=== PATIENT | female | born 1960 | race Caucasian/White ===

== ENCOUNTER 2020-11-27 13:45 | Emergency (ER) | payer MEDICAID, OTHER ==
[~2020-11-27] VITALS: Ht 165.1 cm; Wt 77.1 kg
--- NOTE | 2020-11-27 13:54 | NUR ---
[email or web address], medical screening exam in progress
[2020-11-27] MEDS ORDERED: ACETAMINOPHEN 325 MG TABLET PO ONE (14:00)
[2020-11-27] MEDS ORDERED: LIDOCAINE 5% PATCH TD ONE ×2 (14:00→14:09)
[2020-11-27] MEDS ORDERED: ACETAMINOPHEN 325 MG TABLET ONE (14:09)
[2020-11-27] MEDS ORDERED: BACLOFEN 10 MG TABLET ONE (14:12)
[2020-11-27] MEDS ORDERED: MORPHINE SULFATE 4 MG/1 ML DISP.SYRIN ONE (14:13)
--- NOTE | 2020-11-27 14:13 | NUR ---
Patient refused all pain medicines except lidocaine patch, notified.
[2020-11-27] MEDS ORDERED: MORPHINE SULFATE 4 MG/1 ML DISP.SYRIN IM ONE (14:15)
[2020-11-27] MEDS ORDERED: BACLOFEN 10 MG TABLET PO ONE (14:15)
[2020-11-27] MEDS ORDERED: ACET-2154 PO (14:34)
[2020-11-27] MEDS ORDERED: IBUP-1955 PO (14:34)
[2020-11-27] MEDS ORDERED: BACL10TA PO (14:34)
[2020-11-27] MEDS ORDERED: LIDO30AD10 TD (14:34)
--- NOTE | 2020-11-27 14:38 | NUR ---
Patient discharged to home in stable condition with brisk steady gait. Written and verbal after care instructions given to patient and family in [place] and [place]. Patient and family verbalized understanding and compliance of instructions. Stressed follow up with primary doctor and orthopedic doctor or return to ER for worsening s/s.
== END 2020-11-27 14:40 | disposition home or self-care (01) ==
LOC: ER 13:45
DX: M75.31 Calcific tendinitis of right shoulder (principal); I10 Essential (primary) hypertension
CPT/HCPCS: 73030; J2270

== ENCOUNTER 2022-03-04 00:18 | Emergency (ER) | payer OTHER ==
[~2022-03-04] VITALS: Ht 165.1 cm; Wt 82.6 kg
[~2022-03-04 00:18] MED LIST: ACET-2154 PO; BACL10TA PO; IBUP-1955 PO; LIDO30AD10 TD
--- NOTE | 2022-03-04 01:00 | NUR ---
Patient A/O x4. NAD noted. Ambulatory with a steady gait.
[2022-03-04] MEDS ORDERED: IBUPROFEN 800 MG TABLET ONE ×2 (01:02→02:22)
[2022-03-04] MEDS: IBUPROFEN 800 MG TABLET PO ONE ×2 (01:04→02:24)
[2022-03-04 01:28] LABS: HEMATOCRIT 33.5 % (31.2-41.9); MEAN CORPUSCULAR HEMOGLOBIN 30.5 uug (24.7-32.8); MEAN CORPUSCULAR VOLUME 91.8 fL (75.5-95.3); PLATELET COUNT (AUTO) 334 K/uL (179-408)
[2022-03-04 01:35] LABS: BILIRUBIN,DIRECT 0.1 mg/dL (0.0-0.2); BILIRUBIN,TOTAL 0.4 mg/dL (0.2-1.0); CREATININE 0.7 mg/dL (0.6-1.3); TOTAL PROTEIN, SERUM 7.6 g/dL (6.4-8.2)
[2022-03-04 01:39] LABS: *BILIRUBIN,URIN NEGATIVE (NEGATIVE); *BLOOD, URINE NEGATIVE (NEGATIVE); *CLARITY,URINE CLEAR (CLEAR); *COLOR,URINE LIGHT YELLOW (YELLOW); *KETONES,URINE NEGATIVE (NEGATIVE); *UROBILINOGEN,URINE 0.2 E.U./dl (NORMAL); LEUKOCYTE ESTERASE ,URINE NEGATIVE (NEGATIVE); NITRITE, URINE NEGATIVE (NEGATIVE); PH,URINE 6.5 (5.0-8.0); UGLUCOSE NEGATIVE (NEGATIVE)
--- NOTE | 2022-03-04 03:40 | NUR ---
Patient taken down for CT.
[2022-03-04] MEDS ORDERED: SWABABLE VALVE TRANSFER SET EA MC ONE (03:41)
[2022-03-04] MEDS ORDERED: IOHEXOL 300MG/ML 100 ML INFUS..BTL ONE (03:41)
[2022-03-04] MEDS ORDERED: IV NORMAL SALINE 250 ML IV ONE (03:41)
--- NOTE | 2022-03-04 04:05 | NUR ---
Patient back from CT
--- NOTE | 2022-03-04 07:21 | NUR ---
Report abad to GEETHA Murray.
--- NOTE | 2022-03-04 08:00 | NUR ---
Pt resting with no s/s of distress noted. Spoke with radiology dept about MRI order, stated they will call [facility] and call back with further info.
--- NOTE | 2022-03-04 08:10 | NUR ---
Spoke with Roberto ([phone]) and notified him of the MRI order.
--- NOTE | 2022-03-04 08:54 | NUR ---
Per Roberto pt may be trans to [facility] for MRI, called [facility] for transport, eta 30 mins.
--- NOTE | 2022-03-04 09:18 | NUR ---
Pt to [facility] for MRI via [facility], NAD noted. VS: BP 148/78, HR 73, RR 17, Pulse ox 98% (RA).
--- NOTE | 2022-03-04 10:30 | NUR ---
Pt back from MRI, NAD noted.
--- NOTE | 2022-03-04 12:00 | NUR ---
Pt resting in [facility] with no acute distress noted at this time. MRI results still pending, spoke with radiology dept (Surinder and Shante) who will follow up.
--- NOTE | 2022-03-04 13:30 | NUR ---
Per pt to be admitted to the hospital. ER admitting notified and stated they have to get auth from pt's insurance.
--- NOTE | 2022-03-04 15:00 | NUR ---
Disposition pending, possible transfer out to another facility. ER physician discussed plan of care with pt.
--- NOTE | 2022-03-04 15:10 | NUR ---
Pt wants to leave, ERMD notified and spoke with the pt.
--- NOTE | 2022-03-04 15:21 | NUR ---
IV removed. Catheter intact and site benign. Pressure and 4x4 gauze applied to site. No bleeding noted.
--- NOTE | 2022-03-04 15:21 | NUR ---
Patient does not wish to proceed with medical care recommended by . Patient given information related to possible complications, up to and including , which could occur as a result of leaving the hospital at this time. Patient verbalizes understanding of risks involved due to leaving against medical advice. Patient has signed AMA form. Pt ambulated out of ER with steady gait. Pt stated her daughter is waiting for her outside.
== END 2022-03-04 15:24 | disposition left against medical advice (07) ==
LOC: ER 00:18
DX: R10.9 Unspecified abdominal pain (principal); R20.2 Paresthesia of skin; M54.50 Low back pain, unspecified; M47.816 Spondylosis without myelopathy or radiculopathy, lumbar region; M48.08 Spinal stenosis, sacral and sacrococcygeal region; Z53.29 Procedure and treatment not carried out because of patient's decision for other reasons
CPT/HCPCS: 99285; 70450; 72148; 80076; 80048; 81003; 85025; 36415; 72126; 72131; 74176; 72129; Q9967; J7040; A4663